=== PATIENT | female | born 1955 | race Caucasian/White ===

== ENCOUNTER 2016-09-21 12:50 | Outpatient (CLI) | payer MEDICAID | END 2016-09-21 12:51 | disposition home or self-care (01) | DX: K21.9 Gastro-esophageal reflux disease without esophagitis (principal); R10.9 Unspecified abdominal pain ==

== ENCOUNTER 2016-09-24 08:09 | Outpatient (CLI) | payer MEDICAID | END 2016-09-24 08:10 | disposition home or self-care (01) | DX: K29.50 Unspecified chronic gastritis without bleeding (principal); K21.9 Gastro-esophageal reflux disease without esophagitis ==

== ENCOUNTER 2017-02-08 09:48 | Outpatient (CLI) | payer MEDICAID ==
--- NOTE | 2017-02-08 19:23 | XRAY Report ---
THREE-VIEW LEFT FOOT: 02/08/2017 CLINICAL HISTORY: Left metatarsalgia. COMPARISON: None. FINDINGS: Prominent bunion deformity is seen at the right first MP joint. Significant narrowing of the right first MP joint is noted. Mild bone eburnation is seen in the head of the right first metat arsal and along its medial dorsal aspect. Mild subchondral cyst formation is noted in the medial asp ect of the head of the first metatarsal. Small posterior and plantar calcaneal spurs are noted. Mil dly prominent os peroneum is seen adjacent to the lateral aspect of the cuboid bone. Mild narrowing is seen between the base of the fifth metatarsal and the adjacent cuboid bone. Mild spurring is note d at this articulation. IMPRESSION: 1. NO ACUTE ABNORMALITY. 2. PROMINENT BUNION DEFORMITY IS SEEN AT THE RIGHT FIRST MP JOINT IN ASSOCIATION WITH SIGNIFICANT OS TEOARTHRITIC CHANGE AT THIS JOINT. 3. TINY POSTERIOR AND PLANTAR CALCANEAL SPURS ARE SEEN. JOB #: [id number] EXT JOB #:[id number]
== END 2017-02-08 09:49 | disposition home or self-care (01) ==
LOC: DI.S 09:48
PROVIDERS: ATTEND Nurse Practitioner Family
DX: M19.072 Primary osteoarthritis, left ankle and foot (principal); M77.32 Calcaneal spur, left foot; M21.612 Bunion of left foot

== ENCOUNTER 2018-04-24 14:55 | Emergency (ER) | payer OTHER, MEDICAID ==
[2018-04-24 16:16] LABS: BILIRUBIN,URINE NEGATIVE (NEGATIVE); GLUCOSE, URINE (UA) NEGATIVE (NEGATIVE); KETONES,URINE (UA) NEGATIVE (NEGATIVE); LEUKOCYTE ESTERASE, URINE SMALL (NEGATIVE); NITRITE,URINE NEGATIVE (NEGATIVE); OCCULT BLOOD,URINE NEGATIVE (NEGATIVE); PH,URINE 6.5 PH (5.0-7.5); PROTEIN,URINE NEGATIVE (NEGATIVE); UROBILINOGEN,URINE 0.2 (NORMAL) E.U./dL (NORMAL)
[2018-04-24 16:20] LABS: CLARITY,URINE CLEAR (CLEAR)
[2018-04-24 16:22] LABS: RBC,URINE 0-5 /HPF (0-5)
[2018-04-24 16:23] LABS: BACTERIA,URINE Many /HPF (None Seen); SQUAMOUS EPITHELIAL CELL,UR MANY Squamous (<= Few)
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
[2018-04-24] MEDS ORDERED: ACETAMINOPHEN 325 MG TABLET PO STA (17:28)
[2018-04-24] MEDS ORDERED: IBUPROFEN 600 MG TABLET PO STA (17:28)
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
[2018-04-24 18:35] VITALS: BP 148/81
== END 2018-04-24 18:27 | disposition home or self-care (01) ==
LOC: ED 14:55
DX: S40.812A Abrasion of left upper arm, initial encounter (principal); V49.40XA Driver injured in collision with unspecified motor vehicles in traffic accident, initial encounter; R07.9 Chest pain, unspecified
CPT/HCPCS: 71250; 72125; 81001; 99283; A9270; 81003; 87086

== ENCOUNTER 2018-12-05 07:25 | Outpatient (CLI) | payer MEDICAID ==
[2018-12-05 10:18] LABS: BASOPHILS % (AUTO) 0.8 %; EOSINOPHILS # (AUTO) 0.1 10^3/uL (0.0-0.7); EOSINOPHILS % (AUTO) 2.9 %; HGB - HEMOGLOBIN 13.8 g/dL (12.0-16.0); LYMPHOCYTES # (AUTO) 1.6 10^3/uL (1.5-3.5); LYMPHOCYTES % (AUTO) 30.6 %; MEAN CORPUSCULAR HEMOGLOBIN 30.5 pg (27.0-31.0); MEAN CORPUSCULAR HGB CONC 33.8 g/dL (32.0-36.0); MEAN CORPUSCULAR VOLUME 90.2 fL (81.0-99.0); MEAN PLATELET VOLUME 8.6 fL (7.9-10.8); MONOCYTES # (AUTO) 0.3 10^3/uL (0.0-1.0); NEUTROPHILS # (AUTO) 3.1 10^3/uL (1.5-6.6); NEUTROPHILS % (AUTO) 59.7 %; PLT - PLATELET COUNT 302 10^3/uL (130-450); RED BLOOD COUNT 4.51 10^6/uL (4.20-5.40); RED CELL DISTRIBUTION WIDTH 13.5 % (12.0-15.0); WHITE BLOOD COUNT 5.1 x10^3/uL (4.8-10.8)
[2018-12-05 10:33] LABS: ALBUMIN 3.9 g/dL (3.2-5.5); ALBUMIN/GLOBULIN RATIO 1.1 (1.0-2.2); ALKALINE PHOSPHATASE 68 IU/L (42-121); ALT ALANINE AMINOTRANSFERASE 30 IU/L (10-60); AST ASPARTATE AMINOTRANSFERASE 22 IU/L (10-42); BILIRUBIN,TOTAL 0.7 mg/dL (0.2-1.0); BUN - BLOOD UREA NITROGEN 18 mg/dL (6-20); CARBON DIOXIDE - CO2 27 mmol/L (21-32); CHLORIDE 103 mmol/L (101-111); CHOL/HDL RATIO 3.5 (<4.4); CHOLESTEROL 219 mg/dL; CREATININE 0.6 mg/dL (0.4-1.0); GFR - MDRD 101 (>89); GLUCOSE 99 mg/dL (70-100); HDL CHOLESTEROL 63 mg/dL; LDL CHOLESTEROL,CALCULATED 133 mg/dL; LDL/HDL RATIO 2.1 (<4.4); SODIUM 138 mmol/L (135-145); TOTAL PROTEIN 7.3 g/dL (6.7-8.2); VLDL CHOLESTEROL 23 mg/dL
== END 2018-12-05 07:26 | disposition home or self-care (01) ==
LOC: LAB.F 07:25
PROVIDERS: ATTEND Nurse Practitioner Family
DX: R42 Dizziness and giddiness (principal); E78.5 Hyperlipidemia, unspecified
CPT/HCPCS: 36415; 80050; 80061; 83721

== ENCOUNTER 2022-05-17 08:23 | Outpatient (CLI) | payer MEDICARE ==
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
== END 2022-05-17 08:24 | disposition home or self-care (01) ==
LOC: DI 08:23
PROVIDERS: ATTEND Physician Assistant
DX: Z78.0 Asymptomatic menopausal state (principal); M85.88 Other specified disorders of bone density and structure, other site